=== PATIENT | female | born 1940 | race Hispanic/Latino ===

== ENCOUNTER → 2020-05-22 | Outpatient (RCR) | payer MEDICARE, OTHER ==
[~2020-05-22] MED LIST: LIDOCAINE/PRILOCAINE 2.5-2.5% KIT ONE; MUPIROCIN 2% OINT 22 GM TUBE ONE
== END ==
LOC: WCC 15:24
PROVIDERS: ATTEND Plastic Surgery
DX: S81.802A Unspecified open wound, left lower leg, initial encounter (principal); Y92.099 Unspecified place in other non-institutional residence as the place of occurrence of the external cause

== ENCOUNTER 2020-06-12 11:03 | Outpatient (RCR) | payer MEDICARE, OTHER ==
[~2020-06-12 11:03] MED LIST changes: -LIDOCAINE/PRILOCAINE 2.5-2.5% KIT ONE
[2020-06-12] MEDS ORDERED: LIDOCAINE/PRILOCAINE 2.5-2.5% KIT ONE (13:34)
[2020-06-12] MEDS ORDERED: MUPIROCIN 2% OINT 22 GM TUBE ONE (13:34)
== END 2020-06-22 ==
LOC: WCC 11:03
PROVIDERS: ATTEND Plastic Surgery
DX: S81.802A Unspecified open wound, left lower leg, initial encounter (principal); G89.4 Chronic pain syndrome; I10 Essential (primary) hypertension; M79.7 Fibromyalgia; Y92.099 Unspecified place in other non-institutional residence as the place of occurrence of the external cause

== ENCOUNTER 2020-07-10 13:00 | Outpatient (RCR) | payer MEDICARE, OTHER ==
[~2020-07-10 13:00] MED LIST changes: +LIDOCAINE VISC 2% SOLN 15 ML UDC ONE; -MUPIROCIN 2% OINT 22 GM TUBE ONE
[2020-07-10] MEDS ORDERED: LIDOCAINE/PRILOCAINE 2.5-2.5% KIT ONE (16:14)
== END 2020-07-23 ==
LOC: WCC 13:00
PROVIDERS: ATTEND Plastic Surgery
DX: S81.802A Unspecified open wound, left lower leg, initial encounter (principal); G89.4 Chronic pain syndrome; I10 Essential (primary) hypertension; M79.7 Fibromyalgia; Y92.099 Unspecified place in other non-institutional residence as the place of occurrence of the external cause

== ENCOUNTER 2020-07-24 14:54 | Outpatient (RCR) | payer MEDICARE, OTHER ==
[2020-07-24] MEDS ORDERED: LIDOCAINE VISC 2% SOLN 15 ML UDC ONE (16:10)
== END 2020-08-20 ==
LOC: WCC 14:54
PROVIDERS: ATTEND Plastic Surgery
DX: G89.4 Chronic pain syndrome (principal); S81.802A Unspecified open wound, left lower leg, initial encounter; I10 Essential (primary) hypertension; M79.7 Fibromyalgia; Y92.099 Unspecified place in other non-institutional residence as the place of occurrence of the external cause